=== PATIENT | female | born 2000 | race Caucasian/White ===

== ENCOUNTER 2022-01-24 09:32 | Inpatient (IN) | payer MEDICAID ==
[~2022-01-24] VITALS: Ht 160 cm; Wt 99.8 kg
[2022-01-24] MEDS ORDERED: CITRIC ACID/SODIUM CITRATE SOLN 30ML UDC PO PRN (11:00)
[2022-01-24 11:10] LABS: CLARITY URINE CLEAR (CLEAR); COLOR URINE YELLOW (YELLOW); KETONES URINE NEGATIVE (NEGATIVE); LEUKOCYTE ESTERASE URINE TRACE (NEGATIVE); NITRITE URINE NEGATIVE (NEGATIVE); OCCULT BLOOD URINE 1+ (NEGATIVE); PH URINE 6.5 (4.5-8.0); PROTEIN URINE 4+ (NEGATIVE); SPECIFIC GRAVITY URINE 1.016 (1.005-1.030); UROBILINOGEN URINE 0.2 E.U./dL (0.2-1.0)
[2022-01-24 11:17] LABS: CHLORIDE 106 mEq/L (98-107)
[2022-01-24 11:22] LABS: D-DIMER 1.97 mg/L FEU (<0.50); INR 0.9; PARTIAL THROMBOPLASTIN TIME 25.9 sec (23.4-31.0); PROTHROMBIN TIME 9.6 sec (9.6-11.0)
[2022-01-24 11:25] LABS: BASOPHILS % 0.1 % (0.0-2.0); EOSINOPHILS % 0.1 % (0.0-5.0); HEMATOCRIT. 39.5 % (36.0-48.0); LYMPHOCYTES % 12.6 % (20.0-50.0); MEAN CORPUSCULAR HEMOGLOBIN 27.6 pg (28.0-32.0); MEAN CORPUSCULAR VOLUME 83.7 fL (81.0-99.0); MEAN PLATELET VOLUME 9.7 fl (7.4-10.4); MONOCYTES % 5.6 % (2.0-8.0); NEUTROPHILS % 81.6 % (40.0-76.0); PLATELET 208 x1000/uL (130-400); RED BLOOD CELL COUNT 4.72 mill/uL (4.2-5.4); RED CELL DISTRIBUTION WIDTH 14.9 % (11.6-14.6)
[2022-01-24] MEDS ORDERED: MAGNESIUM 4 G PREMIX 100 ML IV ONE (11:45)
[2022-01-24] MEDS: LACTATED RINGERS 1,000 ML IV SCH ×3 (11:52→22:54)
[2022-01-24] MEDS: MAGNESIUM 20 G PREMIX (L & D) 500 ML IV SCH ×2 (12:19→21:29)
[2022-01-24] MEDS: BETAMETHASONE ACET/BETAMET 30 MG/5 ML VIAL IM SCH (14:34)
[2022-01-24 14:41] LABS: *AMPHETAMINES SCREEN URINE NEGATIVE (NEGATIVE); *BARBITURATES SCREEN URINE NEGATIVE (NEGATIVE); *BENZODIAZEPINES SCREEN URINE NEGATIVE (NEGATIVE); *COCAINE SCREEN URINE NEGATIVE (NEGATIVE); CANNABINOID URINE SCREEN NEGATIVE (NEGATIVE); METHADONE URINE SCREEN NEGATIVE (NEGATIVE); OPIATES URINE SCREEN NEGATIVE (NEGATIVE); PHENCYCLIDINE URINE SCREEN NEGATIVE (NEGATIVE)
[2022-01-24 15:35] LABS: HEPATITIS B SURFACE ANTIGEN NEGATIVE
[2022-01-24] MEDS ORDERED: MAGNESIUM 20 G PREMIX (L & D) 500 ML IV SCH (15:45)
[2022-01-24] MEDS ORDERED: LABETALOL HCL 5MG/ML VIAL 20ML IV PRN ×3 (16:45)
[2022-01-24] MEDS ORDERED: HYDRALAZINE 20MG/ML VIAL IV PRN (16:45)
[2022-01-25] MEDS: MAGNESIUM 20 G PREMIX (L & D) 500 ML IV SCH ×2 (08:27→19:08)
[2022-01-25] MEDS: OXYTOCIN 30 UNITS/500ML NS PMX 500 ML IV SCH ×3 (13:11→22:13)
[2022-01-25] MEDS: LACTATED RINGERS 1,000 ML IV SCH (13:12)
[2022-01-25] MEDS: BETAMETHASONE ACET/BETAMET 30 MG/5 ML VIAL IM SCH (14:18)
[2022-01-25] MEDS ORDERED: BUTORPHANOL TARTRATE 2 MG/ML VIAL IM PRN (18:45)
[2022-01-25] MEDS ORDERED: PENICILLIN G POTASSIUM 5 MMU in DEXT 5% WATER 100 ML IV NR (20:00)
[2022-01-25] MEDS ORDERED: LIDOCAINE HCL 1% 30ML VIAL (10MG/ML) INFIL NR (20:30)
[2022-01-25] MEDS ORDERED: OXYTOCIN 30 UNITS/500ML NS PMX 500 ML IV SCH (21:30)
[2022-01-25] MEDS ORDERED: LANOLIN OINT 7GM TUBE TOP PRN (21:30)
[2022-01-25] MEDS ORDERED: IBUPROFEN 400MG TABLET PO PRN (21:30)
[2022-01-25] MEDS ORDERED: ACETAMINOPHEN WITH CODEINE 300/30MG TABLET PO PRN (21:30)
[2022-01-25] MEDS ORDERED: HEMORRHOIDAL SUPP PR PRN (21:30)
[2022-01-25] MEDS ORDERED: BENZOCAINE/LANOLIN/ALOE VERA SPRAY TOP PRN (21:30)
[2022-01-25] MEDS ORDERED: ONDANSETRON HCL 4MG/2ML INJ IV PRN (21:30)
[2022-01-25] MEDS ORDERED: RHO(D) IMMUNE GLOBULIN 300 MCG/SYR IM PRN (21:30)
[2022-01-25] MEDS ORDERED: GLYCERIN/WITCH HAZEL LEAF MEDICATED PAD TOP PRN (21:30)
[2022-01-25] MEDS ORDERED: BISACODYL 10MG SUPP PR PRN (21:30)
[2022-01-25] MEDS ORDERED: DIPHENHYDRAMINE 25MG CAPSULE PO PRN (21:30)
[2022-01-25] MEDS ORDERED: NALOXONE HCL 0.4MG/ML VIAL IV PRN (21:45)
[2022-01-25] MEDS ORDERED: CARBOPROST TROMETHAMINE 250 MCG/ML AMPUL IM NR (22:30)
[2022-01-26] MEDS ORDERED: PENICILLIN G POTASSIUM 2.5 MMU in DEXTROSE 5% WATER 50 ML IV SCH ×2
[2022-01-26] MEDS: IBUPROFEN 800MG TABLET PO PRN ×2 (00:14→09:12)
[2022-01-26 00:50] VITALS: BP 125/78
[2022-01-26 04:14] VITALS: BP 117/66
[2022-01-26 06:03] LABS: BASOPHILS % 0.1 % (0.0-2.0); HEMATOCRIT. 27.2 % (36.0-48.0); HEMOGLOBIN. 9.1 g/dL (12.0-16.0); MEAN CORPUSCULAR VOLUME 83.7 fL (81.0-99.0); MEAN PLATELET VOLUME 8.9 fl (7.4-10.4); MONOCYTES % 5.1 % (2.0-8.0); NEUTROPHILS % 84.8 % (40.0-76.0); PLATELET 222 x1000/uL (130-400); RED BLOOD CELL COUNT 3.25 mill/uL (4.2-5.4); RED CELL DISTRIBUTION WIDTH 15.1 % (11.6-14.6)
[2022-01-26 08:00] VITALS: BP 131/84
[2022-01-26] MEDS ORDERED: PRENATAL VIT/FE FUMARATE/FA TABLET PO SCH (09:00)
[2022-01-26] MEDS: FERROUS SULFATE 325MG TABLET PO SCH ×2 (09:12→20:45)
[2022-01-26] MEDS: MAGNESIUM/ALUMINUM HYDROXIDE/SIMETHICONE 30ML UDC PO SCH ×2 (09:12→20:45)
[2022-01-26] MEDS: SIMETHICONE 80MG TABLET CHEW PO SCH ×2 (09:12→20:46)
[2022-01-26] MEDS: MAGNESIUM 20 G PREMIX (L & D) 500 ML IV SCH (11:35)
[2022-01-26] MEDS: LACTATED RINGERS 1,000 ML IV SCH (11:36)
[2022-01-26 16:00] VITALS: BP 113/66
[2022-01-26 19:00] VITALS: BP 130/84
[2022-01-26] MEDS ORDERED: DOCUSATE SODIUM 100MG CAPSULE PO SCH (21:00)
[2022-01-27 00:01] VITALS: BP 124/71
[2022-01-27 03:35] VITALS: BP 134/80
[2022-01-27 07:52] VITALS: BP 136/75
[2022-01-27 09:18] LABS: BASOPHILS % 0.3 % (0.0-2.0); EOSINOPHILS % 0.2 % (0.0-5.0); HEMATOCRIT. 24.4 % (36.0-48.0); HEMOGLOBIN. 8.1 g/dL (12.0-16.0); LYMPHOCYTES % 30.4 % (20.0-50.0); MEAN CORPUSCULAR HEMOGLOBIN 28.2 pg (28.0-32.0); MEAN CORPUSCULAR VOLUME 85.3 fL (81.0-99.0); MEAN PLATELET VOLUME 8.4 fl (7.4-10.4); MONOCYTES % 5.4 % (2.0-8.0); NEUTROPHILS % 63.7 % (40.0-76.0); PLATELET 192 x1000/uL (130-400); RED BLOOD CELL COUNT 2.86 mill/uL (4.2-5.4); RED CELL DISTRIBUTION WIDTH 15.6 % (11.6-14.6)
== END 2022-01-27 09:50 | disposition home or self-care (01) | DRG 560 ==
LOC: 8 EST LDRP 09:32 → OBSVTOIN 09:32 → 8EST 01-26 01:16
PROVIDERS: ADMIT Obstetrics & Gynecology; ATTEND Obstetrics & Gynecology
PROC: 10E0XZZ Delivery of Products of Conception, External Approach (ICD-10-PCS; principal; 2022-01-25)
PROC: 0KQM0ZZ Repair Perineum Muscle, Open Approach (ICD-10-PCS; 2022-01-25)
DX: O13.4 Gestational [pregnancy-induced] hypertension without significant proteinuria, complicating childbirth (principal); Z37.0 Single live birth; O60.14X0 Preterm labor third trimester with preterm delivery third trimester, not applicable or unspecified; O36.5930 Maternal care for other known or suspected poor fetal growth, third trimester, not applicable or unspecified; O72.1 Other immediate postpartum hemorrhage; Z20.822 Contact with and (suspected) exposure to COVID-19; O70.1 Second degree perineal laceration during delivery; O69.81X0 Labor and delivery complicated by cord around neck, without compression, not applicable or unspecified; Z3A.35 35 weeks gestation of pregnancy
CPT/HCPCS: 36415; 76805; 76818; 80053; 80305; 81003; 83735; 84550; 85025; 85379; 85384; 86592; 86703; 86762; 86850; 86900; 87340; 87426; 88307; 96360; 96372; 99281; J0360; J0595; J0702; J2540; J3475; J3490; J7060; J7120; A4315; J2590